=== PATIENT | male | born 1955 | race Caucasian/White ===

== ENCOUNTER → 2017-03-10 | Outpatient (CLI) | payer MEDICARE | END | disposition home or self-care (01) | LOC: PCVCCLINIC 10:00 | PROVIDERS: ATTEND Internal Medicine Cardiovascular Disease | DX: I25.10 Atherosclerotic heart disease of native coronary artery without angina pectoris (principal); I10 Essential (primary) hypertension; E78.00 Pure hypercholesterolemia, unspecified; I65.23 Occlusion and stenosis of bilateral carotid arteries; J44.9 Chronic obstructive pulmonary disease, unspecified; E11.9 Type 2 diabetes mellitus without complications; Z72.0 Tobacco use; Z95.5 Presence of coronary angioplasty implant and graft; Z79.82 Long term (current) use of aspirin | CPT/HCPCS: 80061; 93005; G0463 ==

== ENCOUNTER → 2017-03-21 | Outpatient (CLI) | payer MEDICARE ==
[~2017-03-21] MED LIST: IPRATRPIUM/ALBUTEROL 0.5/2.5MG 3 ML NEBU. ONE; REGADENOSON 0.4 MG/5 ML DISP.SYRIN. IV ONE
--- NOTE | 2017-03-21 10:10 | PCVCIMAG ---
EXAM: BILATERAL CAROTID DUPLEX INDICATION: Carotid Occlusive Disease. FINDINGS: Doppler Measurements (centimeters per second): RIGHT: Peak CCA-45, Peak ECA-247, Diastolic ICA-58, Peak ICA-141, ICA/CCA Ratio-3.1. LEFT: Peak CCA-85, Peak ECA-238, Diastolic ICA-63, Peak ICA-148, ICA/CCA Ratio-1.7. RIGHT CAROTID: Good color flow throughout a prior stent in the upper common carotid and extending into the proximal internal carotid artery. The proximal internal carotid artery shows 50% stenosis. The common carotid artery shows no significant stenosis. The external carotid artery shows 70% stenosis. LEFT CAROTID: Good color flow throughout a prior stent in the upper common carotid and extending into the proximal internal carotid artery. The proximal internal carotid artery shows 50% stenosis. The common carotid artery shows no significant stenosis. The external carotid artery shows 70% stenosis. Antegrade flow in both vertebral arteries. IMPRESSION: Prior right carotid stent shows 50% restenosis not felt to be critically flow-limiting. Prior left carotid stent shows 50% restenosis not felt to be critically flow-limiting. Findings are similar to prior study dated March 2016. LOC:[id number]
--- NOTE | 2017-03-21 13:32 | PCVCIMAG ---
APPROVED REPORT Study performed: 03/21/2017 07:41:02 EXAM: Comprehensive 2D, Doppler, and color-flow Echocardiogram Patient Location: Echo lab Status: routine BSA: 1.98 HR: 82 bpmBP: 130/72 mmHg Rhythm: NSR Other Information Study Quality: Adequate Risk Factors: Cardiac Risk Factors: HTN Indications CAD Tobacco use 2D Dimensions LVEF(%): 34.12 (>50%) IVSd: 9.46 (7-11mm) LVDd: 43.07 mm PWd: 8.90 (7-11mm) LVDs: 36.14 (25-40mm) Left Atrium: 30.06 (27-40mm) Aortic Root: 33.73 mm LV Single Plane 4CH: 56.76 % LV Single Plane 2CH: 61.16 %Johnson's LVEF: 58.96 % Biplane EF: 60.6 % Volumes Left Atrial Volume (Systole) Single Plane 4CH: 21.44 mLSingle Plane 2CH: 54.92 mL LA ESV Index: 19.00 mL/m2 Aortic Valve AoV Peak Sudhir.: 1.51 m/s AO Peak Gr.: 9.15 mmHgLVOT Max P.73 mmHg LVOT Max V: 0.97 m/s Mitral Valve E/A Ratio: 0.8 MV Decel. Time: 264.27 ms MV E Max Sudhir.: 0.78 m/s MV A Sudhir.: 0.99 m/s IVRT: 107.27 ms Pulmonary Valve PV Peak Sudhir.: 0.97 m/sPV Peak Gr.: 3.78 mmHg Pulmonary Vein P Vein S: 0.42 m/sP Vein A: 0.34 m/s P Vein D: 0.51 m/sP Vein A Dur.: 152.2 msec P Vein S/D Ratio: 0.82 Tricuspid Valve TR Peak Sudhir.: 2.87 m/s TR Peak Gr.: 32.94 mmHg Left Ventricle The left ventricle is normal size. There is normal LV segmental wall motion. There is normal left ventricular wall thickness. Left ventricular systolic function is normal. The left ventricular ejection fraction is within the normal range. LVEF is 55-60%. Grade I - abnormal relaxation pattern. Right Ventricle The right ventricle is normal size. The right ventricular systolic function is normal. Atria The left atrium size is normal. The right atrium size is normal. Aortic Valve The Aortic valve is sclerotic. No aortic regurgitation is present. There is no aortic valvular stenosis. Mitral Valve The mitral valve is normal in structure. There is trace mitral valve regurgitation noted. No evidence of mitral valve stenosis. Tricuspid Valve The tricuspid valve is normal in structure. Mild tricuspid regurgitation with PAP of 40 mmHg. Pulmonic Valve The pulmonary valve is normal in structure. There is no pulmonic valvular regurgitation. Great Vessels The aortic root is normal in size. IVC is normal in size and collapses with >50% inspiration Pericardium There is no pericardial effusion. <Conclusion> The left ventricle is normal size. LVEF is 55-60%. Grade I - abnormal relaxation pattern. The right ventricle is normal size. The left atrium size is normal. The right atrium size is normal. The Aortic valve is sclerotic. There is no aortic valvular stenosis. There is trace mitral valve regurgitation noted. Mild tricuspid regurgitation with PAP of 40 mmHg. There is no pericardial effusion.
--- NOTE | 2017-03-21 15:07 | PCVCIMAG ---
APPROVED REPORT Exam: Nuclear Stress Test Indication: CAD , Chest pain Patient Location: Out-Patient Stress Nurse: Esther Chavez RN, Nan Lopez RN RI Tech:Gisselle Rex [facility] Ht: 5 ft 9 in Wt: 175 lbs BSA: 1.95 m2 HR: 80 bpm BP: 146/72 mmHg BMI: 25.8 Rhythm: NSR Medical History Medical History: HTN, Hyperlipidemia, COPD, Age, Current Smoker Allergies: No known drug allergies Previous Cardiac Procedures: PCI Pretest Chest Pain Characteristics: No chest pain NM EXAM: Myocardial Perfusion REST/STRESS Imaging Protocol: Rest Tc-99m/Stress Tc-99m 1 day Resting Data Rest SPECT myocardial perfusion imaging was performed in supine position 45 minutes following the intravenous injection of 10.9 mCi of Tc-99m Sestamibi. Time of rest injection: 919 Date: 03/21/2017 Administration Route: IV Administration Site: Right Arm Pharmacologic Stress Pharmacologic stress test was performed by injecting Regadenoson 0.4 mg IV push followed by the intravenous injection of 34.8 mCi of Tc-99m Sestamibi. Time of stress injection: 1050 Date: 03/21/2017 Administration Route: IV Administration Site: Right Arm Gated Stress SPECT was performed 45 minutes after stress injection. The images were gated to evaluate regional wall motion and calculate left ventricular ejection fraction. Study Quality Study: Good Study Data Post stress, the left ventricular ejection was 54%.. SSS: 3 SRS: 3 SDS: 2 TID = 1.25. Perfusion No evidence of stress induced ischemia or prior myocardial infarction. Wall Motion Normal left ventricular size and function with no regional wall motion abnormalities. Nuclear Conclusion No evidence of stress induced ischemia or prior myocardial infarction. Normal left ventricular size and function with no regional wall motion abnormalities. Post stress, the left ventricular ejection was 54%.. No change since prior study dated May 2015. Interpreted by: Cory Smith MD Electronically Approved: 03/21/2017 14:16:50 Stress Test Details Stress Test: Pharmacologic stress testing performed using 0.4 mg of regadenoson per 5 mL given IV over 10 seconds. Reason for pharmacologic stress test: physical limitation. HR Resting HR: 80 bpmMax Heart Rate (APMHR): 158 bpm Max HR Achieved: 100 bpmTarget HR (85% APMHR): 134 bpm % of APMHR: 63 Recovery HR: 93 bpm BP Resting BP: 146/72 mmHg Max BP: 127/58 mmHg ECG Resting ECG: Sinus Rhythm Stress ECG: Sinus Rhythm, NSSTT changes Clinical Reason for Termination: Completed protocol Stress Symptoms: Dyspnea, Light-headed Exercise duration: 0 min 55 sec Symptoms resolved during recovery.
== END | disposition home or self-care (01) ==
LOC: PCVCIMAG 07:40
PROVIDERS: ATTEND Internal Medicine Cardiovascular Disease
DX: I65.23 Occlusion and stenosis of bilateral carotid arteries (principal); I25.10 Atherosclerotic heart disease of native coronary artery without angina pectoris; I10 Essential (primary) hypertension; J44.9 Chronic obstructive pulmonary disease, unspecified; I08.1 Rheumatic disorders of both mitral and tricuspid valves; K52.9 Noninfective gastroenteritis and colitis, unspecified; E11.9 Type 2 diabetes mellitus without complications; Z95.5 Presence of coronary angioplasty implant and graft; Z72.0 Tobacco use
CPT/HCPCS: 78452; 93017; 93306; 93880; A9500; J2785; J7620

== ENCOUNTER → 2017-12-16 | Outpatient (CLI) | payer MEDICARE | END | disposition home or self-care (01) | LOC: PCVCCLINIC 10:12 | DX: I25.10 Atherosclerotic heart disease of native coronary artery without angina pectoris (principal); I65.23 Occlusion and stenosis of bilateral carotid arteries; J43.2 Centrilobular emphysema; I10 Essential (primary) hypertension; E78.00 Pure hypercholesterolemia, unspecified; R05 Cough; E11.9 Type 2 diabetes mellitus without complications; Z72.0 Tobacco use; Z79.82 Long term (current) use of aspirin; Z79.899 Other long term (current) drug therapy | CPT/HCPCS: 80061; 93005; G0463 ==

== ENCOUNTER → 2018-09-04 | Outpatient (CLI) | payer MEDICARE ==
--- NOTE | 2018-09-04 13:14 | PCVCIMAG ---
EXAM: BILATERAL CAROTID DUPLEX INDICATION: Carotid Occlusive Disease. FINDINGS: Doppler Measurements (centimeters per second): RIGHT: Peak CCA-55, Peak ECA-155, Diastolic ICA-22, Peak ICA-75, ICA/CCA Ratio-1.4. LEFT: Peak CCA-84, Peak ECA-219, Diastolic ICA-26, Peak ICA-88, ICA/CCA Ratio-1.0. RIGHT CAROTID: Good color flow throughout a prior stent in the upper common carotid and extending into the proximal internal carotid artery. The proximal internal carotid artery shows no significant stenosis. The common carotid artery shows no significant stenosis. The external carotid artery shows 50% stenosis. LEFT CAROTID: Good color flow throughout a prior stent in the upper common carotid and extending into the proximal internal carotid artery. The proximal internal carotid artery shows no significant stenosis. The common carotid artery shows no significant stenosis. The external carotid artery shows 60% stenosis. Antegrade flow in both vertebral arteries. IMPRESSION: Prior right carotid stent shows good patency. Prior left carotid stent shows good patency. LOC:[place] [id number]
--- NOTE | 2018-09-04 16:30 | PCVCIMAG ---
APPROVED REPORT Study performed: 09/04/2018 14:23:13 Exam: Stress Echocardiogram Indication: CAD s/p PCI, Dyspnea, tobacco use, DM, COPD Patient Location: Echo lab Stress Nurse: Esther Chavez RN Status: routine Ht: 5 ft 9 in HR: 111 bpm BP: 128/76 mmHg Rhythm: Tachycardia Procedure The patient underwent an Exercise Stress Test using the Thor Protocol. Blood pressure, heart rate, and EKG were monitored. An Echocardiogram was performed by overhead crane technician in four stages in quad fashion. At peak stress, four selected images were obtained and placed side by side with resting images for comparison. Stress Test Details Stress Test: Exercise stress testing was performed using a Thor protocol. HR Resting HR: 111 bpmMax Heart Rate (APMHR): 157 bpm Max HR Achieved: 141 bpmTarget HR (85% APMHR): 133 bpm % of APMHR: 89 Recovery HR: 111 bpm HR response to stress: Normal HR response to stress BP Resting BP: 128/76 mmHg Max BP: 182/78 mmHg Recovery BP: 144/76 mmHg BP response to stress: Normal blood pressure response to stress. ECG Resting ECG: Sinus Tachycardia Stress ECG: Sinus Tachycardia ST Change: Normal Arrhythmia: isolated PVCs Recovery ECG: Sinus Tachycardia Recovery ST Change: Normal Recovery Arrhythmia: isolated PVCs Clinical Reason for Termination: Maximal effort Stress Symptoms: Dyspnea, calf pain Exercise duration: 7 min 30 sec Highest Stage Achieved: Stage 3: 3.4 mph at 14% grade. Exercise capacity: 10.1 METs Overall Exercise Capacity for Age: Average Scale: Active Angina Score: None Pre-Stress Echo The resting Echocardiogram showed normal left ventricular contractility with an estimated Ejection Fraction of about >55%. Normal wall motion in all segments on baseline images. Post-Stress Echo The stress Echocardiogram showed normal left ventricular contractility with an estimated Ejection Fraction of about 65%. Normal augmentation of wall motion in all segments on post stress images. Clinical No clinical or ECG evidence for ischemia. Conclusion Clinical Response: Non-ischemic Exercise Capacity: Average Stress ECG Response: Non-ischemic Stress Echo Images: Non-ischemic The left ventricle is normal in size and wall thickness in both the rest and stress images. Other Information Study Quality: Adequate <Conclusion> The left ventricle is normal in size and wall thickness in both the rest and stress images.
--- NOTE | 2018-09-04 16:49 | PCVCIMAG ---
EXAM: BILATERAL LOWER EXTREMITY ARTERIAL DUPLEX INDICATION: Peripheral Arterial Disease. Leg pain. FINDINGS: Right Leg: Common femoral and profunda femoral arteries are patent. Superficial femoral and popliteal artery patent. Peroneal posterior tibial arteries are patent. Occlusion of the mid anterior tibial artery. Left Leg: Common femoral and profunda femoral arteries are patent. Superficial femoral and popliteal artery are patent. 50-60% stenosis origin posterior tibial artery not felt be critically flow-limiting. The anterior tibial and peroneal arteries are patent. 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 Otherwise no flow limiting stenosis in the right lower extremity. 50-60% stenosis origin left posterior tibial artery. No flow limiting stenosis in the left lower extremity. LOC:[id number]
== END | disposition home or self-care (01) ==
LOC: PCVCIMAG 12:57
PROVIDERS: ATTEND Internal Medicine Cardiovascular Disease
DX: I25.10 Atherosclerotic heart disease of native coronary artery without angina pectoris (principal); E11.9 Type 2 diabetes mellitus without complications; I10 Essential (primary) hypertension; E78.00 Pure hypercholesterolemia, unspecified; G47.33 Obstructive sleep apnea (adult) (pediatric); R06.00 Dyspnea, unspecified; J44.9 Chronic obstructive pulmonary disease, unspecified; Z72.0 Tobacco use; Z95.1 Presence of aortocoronary bypass graft; I73.9 Peripheral vascular disease, unspecified
CPT/HCPCS: 93325; 93351; 93880; 93925